=== PATIENT | female | born 2000 | race Two or more races ===

== ENCOUNTER → 2023-03-31 | Emergency (ER) | payer OTHER ==
[~2023-03-31] VITALS: Ht 167.6 cm; Wt 68.0 kg
[~2023-03-31] MED LIST: PULMICORT1 MG/2 ML
== END | disposition left against medical advice (07) ==
LOC: ER 00:35
DX: Z53.21 Procedure and treatment not carried out due to patient leaving prior to being seen by health care provider (principal)